=== PATIENT | female | born 1965 | race Two or more races ===

== ENCOUNTER 2020-07-01 22:13 | Emergency (ER) | payer BC ==
[~2020-07-01] VITALS: Ht 160 cm; Wt 54.4 kg
[2020-07-02] MEDS ORDERED: PEPCID20 MG PO (03:19)
[2020-07-02] MEDS ORDERED: ONDANSETRON HCL4 MG PO (03:19)
[2020-07-02] MEDS ORDERED: INTESTINEX680 M1 PO (03:19)
== END 2020-07-02 03:49 | disposition home or self-care (01) ==
LOC: ER 22:13
DX: K52.89 Other specified noninfective gastroenteritis and colitis (principal); R11.11 Vomiting without nausea; Z03.818 Encounter for observation for suspected exposure to other biological agents ruled out